=== PATIENT | female | born 2000 | race Caucasian/White ===

== ENCOUNTER 2023-11-25 03:31 | Emergency (ER) | payer SELFPAY ==
[2023-11-25 03:35] VITALS: BP 118/27; PULSE 108; RESP 16; TEMP 36.6; O2SAT 97; BMI 39.6
[2023-11-25 03:43] VITALS: BP 143/82
--- NOTE | 2023-11-25 03:52 | EX.ED.DYSGE1 ---
HPI History of Present Illness Chief Complaint: Abd Pain Informant: patient Narrative Narrative: 22-year-old female from the [facility] states she normally gets her care at [place] came to this emergency department for I do not know something like a second opinion for a esophagitis flare for the last 36 hours. She states that she had an EGD done several years ago that showed esophagitis. She only takes diflocenac now. She states she is not on a proton pump inhibitor. She states she feels very full in her upper abdomen and has gas. She states that 12 hours ago she went to [facility] where she had an EKG blood work and a CT of her abdomen pelvis which were negative. She states that she does not go anywhere for her care . She has a primary care doctor in [place] but states she does not go there because of the co-pay and she does not have health insurance because she makes too much money working to have it. She states that she is waiting on a GI referral to try to be able to pay for it [id number]. PFSH PFS Medical History Esophagitis H/O splenomegaly Allergy/AdvReac Type Severity Reaction Status Date / Time cephalexin Allergy unknown Verified 11/25/23 03:43 Sulfa (Sulfonamide Allergy Rash Verified 11/25/23 03:43 Antibiotics) sulfamethoxazole Allergy Vomiting Verified 11/25/23 03:43 [From Bactrim] tetracycline Allergy Rash Verified 11/25/23 03:43 trimethoprim [From Bactrim] Allergy Vomiting Verified 11/25/23 03:43 Social History Smoking Status: Unknown if ever smoked ROS [facility] ED Constitutional Constitutional ED: Denies chills or weight loss Eyes Eyes: Denies change in vision or diplopia ENT ENT ED: Denies ear pain, rhinorrhea or sore throat Cardiovascular Cardiovascular: Reports other Details: Syncope ; Denies chest pain, orthopnea, palpitations or racing heartbeat Respiratory/Chest Respiratory/Chest: Denies cough, dyspnea or orthopnea Gastrointestinal Gastrointestinal: Reports abdominal pain; Denies diarrhea, nausea or vomiting Genitourinary Genitourinary ED: Denies dysuria, hematuria or urinary frequency Musculoskeletal Musculoskeletal: Denies arthralgias or myalgias Integumentary Denies abscess or rash Neurologic Neurologic: Denies headache(s) or weakness Psychiatric Psychiatric: Denies anxiety, depression, suicidal ideation or suicidal thoughts Endocrine Endocrinology: Denies polydipsia, polyphagia or polyuria Allergic/Immunologic Allergic/Immunologic ED: Denies mouth swelling, tongue swelling or urticaria EXAM Physical Exam Const Vital Signs: 11/25/23 03:35 11/25/23 03:43 Temperature 97.8 F Temperature Source Oral Pulse Rate 108 H Respiratory Rate 16 Blood Pressure 118/27 L 143/82 H Blood Pressure Mean 57 102 Pulse Ox 97 Oxygen Delivery Method Room Air Positive well nourished and well developed General Appearance ED: well developed Eyes PERRL and EOMs intact bilaterally Neuro oriented x3 Sensorium / Orientation: alert MDM MDM MDM Narrative Medical decision making narrative: I asked the patient if she understands that I do not have access to her care that she has been receiving at outside hospitals. She understands this. I also asked her she understands that I do not feel that repeating a CT 12 hours after her last normal 1 unless absolutely indicated would be advised and she understands this. Anytime I go to ask a question the patient cuts me off and states that she knows. I asked her why she is taking an anti-inflammatory for this when it is known to aggravate esophagitis. She states that she is taking it for lower abdominal pain. She states her female organs are perfect . She states that she saw her elementary assistant teacher for this. She states that the medicine is for intestinal inflammation. No matter what I try to say I get cut off by the patient and eventually she tells me that if I am going to talk down to her that she is going to request a new doctor. Unfortunately it is 0345 in the morning And there are no other doctors in the emergency department. Therefore the patient got up and left the emergency department. Discharge Plan Triage Chief Complaint: Abd Pain ED Provider: Jaycob Coronado Dx/Rx/DC Orders Clinical Impression: Esophagitis, Abdominal pain Primary Care Provider: Ciera Hagan,Out of Referrals: [facility] Doctor,Out of [Primary Care Provider] - Disposition Disposition: Against Medical Advice Capacity Legal Physician Chief Of Pathology Reflex Medical hold order details:: IF a medical hold is selected below, a suggested order for a MEDICAL HOLD will reflex upon signing the document. Next of kin: [place] law dictates a PRIORITY LIST for identifying legal decision-maker/legal next of kin in the following order (LNOK): 1st: The patient?s legal guardian, if any 2nd: The patient's spouse (if status is questionable, consult Risk Management) 3rd: The patient?s adult child(ang[place]) (majority, if multiple children) 4th: The patient?s parents 5th: The patient?s adult siblings (majority, if multiple children siblings)
== END 2023-11-25 03:59 | disposition left against medical advice (07) ==
LOC: ED 03:56
PROVIDERS: Emergency Provider Emergency Medicine; Visit Provider Emergency Medicine
DX: R10.9 Unspecified abdominal pain (principal); K20.90 Esophagitis, unspecified without bleeding
CPT/HCPCS: 99282

== ENCOUNTER 2025-03-16 20:43 | Day surgery (SDC) | payer OTHER, SELFPAY ==
[2025-03-16 20:45] VITALS: BP 142/105; PULSE 102; RESP 18; TEMP 36.9; O2SAT 99; BMI 37.7
--- NOTE | 2025-03-16 21:13 | EDS_ITS ---
HPI History of Present Illness Chief Complaint: Foreign Body Detail of Chief Complaint: Unable to swallow own saliva x 3 hours Informant: patient Onset/Context/Timing Onset: Today (3 hours prior to presentation) Context: Sudden Onset Timing: Continuous Quality: Patient was eating chicken tenders. She feels like it stuck. Location: Initially mid chest now sensation near epigastrium Current Severity: Mild Maximum Severity: Mild Worsened by: Nothing Relieved by: Nothing Associated Symptoms Associated Symptoms: There is no past medical history of esophageal food bolus obstruction Narrative Narrative: Patient is a 24-year-old woman. She has history of gallstone pancreatitis status postcholecystectomy. She is followed by ruben METZ. 3 hours prior to presentation she was eating chicken tenders. She feels that classifier tender got stuck. She initially was pointing mid chest. She is now pointing near the xiphoid process. She is unable to swallow her own secretions. She denies any other complaints. She does not have history of esophageal stricture. Prior similar symptoms: No Recent Illness/Hospitalization: No PFSH PFS Medical History (Updated 03/16/25 @ 21:[address] Ivan Morelos MD) Acute cholecystitis Gallstone pancreatitis H/O splenomegaly Esophagitis Home Medications ?Medication ?Instructions ?Recorded ?Last Taken ?Type NK 03/16/25 Unknown History Allergy/AdvReac Type Severity Reaction Status Date / Time cephalexin Allergy unknown Verified 03/16/25 20:46 Sulfa (Sulfonamide Allergy Rash Verified 03/16/25 20:46 Antibiotics) sulfamethoxazole (From Allergy Vomiting Verified 03/16/25 20:46 Bactrim) tetracycline Allergy Rash Verified 03/16/25 20:46 trimethoprim (From Bactrim) Allergy Vomiting Verified 03/16/25 20:46 Social History Smoking Status: Unknown if ever smoked ROS ROS ED Constitutional Constitutional ED: Denies chills, fever(s), subjective or sweats ENT ENT ED: Denies sore throat Cardiovascular Cardiovascular: Reports chest pain; Denies palpitations or racing heartbeat Respiratory/Chest Respiratory/Chest: Denies cough, dyspnea or dyspnea on exertion Gastrointestinal Gastrointestinal: Denies abdominal pain, nausea or vomiting Hematologic/Lymphatic Hematologic/Lymphatic: Reports systems reviewed and no addt'l complaints, except as documented EXAM Physical Exam Const Vital Signs: 03/16/25 20:45 Temperature 98.4 F Temperature Source Oral Pulse Rate 102 H Respiratory Rate 18 Blood Pressure 142/105 H Blood Pressure Mean 117 Pulse Ox 99 Oxygen Delivery Method Room Air Positive well nourished and well developed Constitutional Narrative: BMI is 37.7. Patient has a emesis bag at bedside and it has significant amount of secretions. General Appearance ED: well developed; Negative for pallor HEENT Reports moist mucous membranes HEENT Narrative: Head is atraumatic normocephalic. Ears normal. Nares patent. Posterior pharynx is normal. Eyes PERRL and EOMs intact bilaterally General Eye ED: Negative for pale conjunctiva or scleral icterus Neck no lymphadenopathy, supple and no JVD Neck Narrative: Trachea is midline. There is no dysphonia. Resp normal respiratory effort and clear to auscultation bilaterally Cardio regular rate, S1 normal heart sound, S2 normal heart sound and no murmurs GI GI Narrative: Nontender. Palpation: soft Neuro oriented x3 and CN's II-XII intact bilaterally Sensorium / Orientation: alert Psych mental status grossly normal Skin no rashes or lesions noted, no wounds and skin turgor normal General Skin Exam: Negative for jaundice or pallor MDM MDM MDM Narrative Medical decision making narrative: Patient with obstructed esophagus due to food bolus, classifier tender. Will attempt glucagon. If this is unsuccessful we will contact [facility] transfer line for transfer for EGD to alleviate the obstruction since there is no GI available at [place]. Treatment and Re-Evaluation :: Patient did receive IV glucagon. She reported decrease in pain and believes that the obstruction has resolved. She was given water. She is able to drink the water without regurgitating it. In light of this the physician office secretary was asked to contact [facility] for transfer to for esophageal obstruction due to food bolus Suspect patient will be a ED to ED transport to facilitate appropriate care, EGD to alleviate food bolus obstruction. Spoke with the transfer line nurse. She will reach out to GI first. Will transfer care to Dr. Garcia. Discharge Plan Triage Chief Complaint: Foreign Body ED Provider: Ivan Morelos Dx/Rx/DC Orders Clinical Impression: Esophageal obstruction due to food impaction, Sinus tachycardia seen on environmental monitoring technician Prescriptions: No Action NK Primary Care Provider: Charo Bateman NP Referrals: Charo Bateman NP, [facility] [Primary Care Provider] - Print Language: Czech Disposition Disposition: Acute Care Hospital Discharge Location: [facility]
[2025-03-16] MEDS: Glucagon 1 MG/ML Syringe IV ×2 (21:24→23:09)
[2025-03-16 21:44] VITALS: BP 128/74; PULSE 89; RESP 16; O2SAT 99
[2025-03-16 22:44] VITALS: BP 133/86; PULSE 83; RESP 16; O2SAT 100
[2025-03-16 23:00] VITALS: BP 131/79; PULSE 87; RESP 16; O2SAT 99
[2025-03-16] MEDS: Ketorolac 15 MG/ML Vial IV (23:55)
[2025-03-16] MEDS: 0.9% Normal Saline (1000mL) 1,000 ML 150 ML IV (23:56)
[2025-03-17] VITALS (8 sets, daily range): BP systolic 108–144; BP diastolic 69–106; PULSE 60–93; RESP 16; TEMP 36.3–37.1; O2SAT 98–100; BMI 37.7
--- NOTE | 2025-03-17 00:46 | HP.PCM_ITS ---
[facility] - General General Date of Service: 03/17/25 Chief Complaint: Esophageal food impaction HPI Narrative CHANDU KILPATRICK, is a 24 F who presents to [facility] with complaints of inability to fully swallow a bite of covering machine tender but she first consumed approximately 1730 last evening. She states that she has a history of some swallowing impairment and occasionally things may take a few hours before in the past. However, when this did not occur after trying multiple different beverages she presented for evaluation. Patient states that beyond a history of swallowing impairment she has a diagnosis of eosinophilic esophagitis which was made at the age of 18. She reports being administered a single dose of budesonide but thereafter only being managed occasionally with omeprazole prescriptions. She underwent a follow-up EGD as part of a workup for gallstone pancreatitis approximately a year ago and was told at that time she had no evidence of esophageal narrowing. Patient was recently relocated to [place] after previously living in [facility] [place]. Patient's ER workup has consisted of 2 trials of glucagon. Patient has expressed some symptomatic relief but after the medication effect wears off she is still unable to tolerate her secretions. She also notes that the discomfort has changed positions from a midsternal position to a roughly xiphoid position as she gestures to those locations. Patient states that the food bolus in question is quite small in size as she tries to take care and not take large bites of food and makes an effort to chew her food thoroughly. [facility] Medical History (Updated 03/16/25 @ 21:[address] Ivan Morelos MD) Acute cholecystitis Gallstone pancreatitis H/O splenomegaly Esophagitis Home Medications ?Medication ?Instructions ?Recorded ?Last Taken ?Type NK 03/16/25 Unknown History Allergy/AdvReac Type Severity Reaction Status Date / Time cephalexin Allergy unknown Verified 03/16/25 20:46 Sulfa (Sulfonamide Allergy Rash Verified 03/16/25 20:46 Antibiotics) sulfamethoxazole (From Allergy Vomiting Verified 03/16/25 20:46 Bactrim) tetracycline Allergy Rash Verified 03/16/25 20:46 trimethoprim (From Bactrim) Allergy Vomiting Verified 03/16/25 20:46 Social History Smoking Status: Unknown if ever smoked Vital Signs Vital Signs Vital Signs: 03/16/25 20:45 03/16/25 21:44 03/16/25 22:44 Temperature 98.4 F Temperature Source Oral Pulse Rate 102 H 89 83 Respiratory Rate 18 16 16 Blood Pressure 142/105 H 128/74 H 133/86 H Blood Pressure Mean 117 92 101 Pulse Ox 99 99 100 Oxygen Delivery Method Room Air 03/16/25 23:00 03/17/25 00:00 Temperature Temperature Source Pulse Rate 87 78 Respiratory Rate 16 16 Blood Pressure 131/79 H 144/90 H Blood Pressure Mean 96 108 Pulse Ox 99 98 Oxygen Delivery Method Room Air Weight Weight: 213 lb Body Mass Index (BMI) 37.7 Physical Exam Const alert, oriented x3 and no apparent distress General Appearance: cooperative Resp normal respiratory effort GI GI Narrative: Nondistended, soft, nontender palpation x 4 quadrants in the epigastrium specifically Assessment & Plan Assessment/Plan (1) Esophageal obstruction due to food impaction: PLAN: Patient is a 24-year-old female who has a known history of eosinophilic esophagitis that apparently has never been definitively treated who presents for esophageal food impaction. Clinically she is stable but remains unable to swallow her secretions. Optimistically, she reports some migration of her discomfort inferiorly. I shared with her that we will plan for EGD with either foreign body extraction or simply try to maneuver the bolus beyond her gastroesophageal junction into the stomach proper. I further discussed that I do not use these procedures to perform any esophageal biopsies out of concern for local tissue necrosis/pressure injury and would recommend a dedicated exam for this purpose so that she can be definitively treated for this condition. She acknowledges understanding. Have discussed case with anesthesia and house sitter. Will plan to proceed to endoscopy for esophageal foreign body disimpaction. Ezequiel Lanier MD General Surgery Endocrine Surgery Pager: [facility] [address] [place] [address], [address] [place] [address] Office: [phone] Charges/Coding Visit Charges Office Visits / Consults: 15291 ED Visit; High/Urgent Severity
--- NOTE | 2025-03-17 01:36 | ED.RN ---
REPORT CALLED TO SURGERY. NURSE REQUESTED TEST TO BE COMPLETED PRIOR TO TAKING TO SURGERY. DOCTOR NOAH NOTIFIED
--- NOTE | 2025-03-17 01:38 | PRE.ANES_ITS ---
ASA Classification* ASA Classification ASA Classification: 2 and E Assessment & Plan Anesthesia* Anesthesia Assessment Anesthesia Assessment: Discussed sedation and/or anesthesia options, risks, benefits, and alternatives with patient/parents/legal guardian/POA. Questions invited. The patient/parents/legal guardian/POA seems to understand and agrees to proceed with anesthesia plan. Reviewed the physical assessment, medical history, allergy history and patient home medications list prior to surgery/procedure/anesthetic and documented any changes. Performed airway and anesthesia risk assessments. Anesthesia Type Anesthesia Type: MAC History Source History Obtained from:: Patient and Chart Anesthesia Focused Assessment* Temperature: 98.7 F Pulse Rate: 79 Blood Pressure: 133/70 Respiratory Rate: 16 Pulse Ox: 100 Oxygen Delivery Method: Room Air Airway Assessment Mouth opens: >3 cm Mallampati Score: II Teeth Condition: Intact Neck Range of motion (ROM): Full ROM Focused Labs Anesthesia Preop lab: CBC CHEMISTRY COAG Urine Test Negative Negative 03/17/25 01:40 03/17/25 Pre-Assessment Diagnosis/Proposed Procedure Planned Operative Procedure(s): EGD Anesthesia History Anesthesia History - ear machine operator: Anesthesia History - ear machine operator Hx Hospitalization Any Problems With Anesthesia No 03/17/25 00:50 Cholinesterase deficiency No 03/17/25 00:50 You/Your Family Experience No 03/17/25 00:50 fever (hyperthermia) with Relationship Recent Exposure to Contagious No 03/17/25 00:50 Disease Does patient have nerve No 03/17/25 00:50 stimulator Patient instructed to have No 03/17/25 00:50 device shut off --Does patient have Pacemaker No 03/17/25 00:50 or ICD? When Was Last Pacemaker Check QUESTION #4 FULL TEXT: You/Your Family Experience fever (hyperthermia) with Anesthesia Last Oral Intake Last Oral intake: Last Oral Intake NPO since 17:30 03/17/25 00:50 Meds taken in AM with sips of water? Meds patient instructed to take am of surgery PONV PONV - ear machine operator: PONV - ear machine operator Female HX of Motion Sickness HX of N/V After Surgery Non-Smoker Duration of Surgery greater than 60 minutes Number of Risk Factors PONV Score Height & Weight Height & Weight: Anesthesia: Height & Weight Height 5 ft 3 in 03/17/25 00:50 Weight: 96.615 kg 03/17/25 00:50 Body Mass Index (BMI) 37.7 03/17/25 00:50 Respiratory Assessment Respiratory Assessment - ear machine operator: Respiratory Tract Infection Hx - ear machine operator Hx Respiratory Tract Infection No 03/17/25 00:50 STOP Sleep Apnea STOP Sleep Apnea - ear machine operator: STOP Sleep Apnea - ear machine operator Hx Hypertension No 03/17/25 00:50 Hx Sleep Apnea No 03/17/25 00:50 CPAP BIPAP Do you snore loudly (louder Yes 03/17/25 00:50 than talking or can be heard Do you often feel tired/ No 03/17/25 00:50 fatigued/ sleepy during daytime? Has anyone observed you stop No 03/17/25 00:50 breathing during sleep? STOP Results Negative 03/17/25 00:50 QUESTION #5 FULL TEXT : Do you snore loudly (louder than talking or can be heard through closed doors)? Tobacco Use History Tobacco Use History - ear machine operator: Tobacco Use History - ear machine operator Tobacco Use Smoking Status Unknown if ever smoked 03/16/25 21:13 Hx Tobacco Use Years Smoking Packs Smoked per Day Smoking Cessation Date was within the last 15 years Hx Smoking Cessation Date Hx Smoking Cessation Counseling Hematologic Medial History Hematologic Hx - ear machine operator: Hematologic Medical Hx - lead mason tender Hx of Blood Transfusion Hx of Transfusion in last 3 Months Date of Last Transfusion (if within last 3 months) Ever experience any problems with transfusion(s)? Specify any problems Hx of Preganancy in last 3 Months Nurse Filling Out Transfusion & Questions: Date: Time: Patient unable to answer at this time (ie. confused, unrespo /Reproduction History /Reproductive History - ear machine operator: /Reproductive Hx- ear machine operator Hx Now No 03/17/25 00:50 Gestational Age (in weeks): EDC: Hx Hx Para Hx Section SAB No 03/17/25 00:50 Active Medications Active Medications: Current Medications Generic Name Dose Route Start Last Admin Trade Name Freq PRN Reason Stop Dose Admin Sodium Chloride 1,000 mls @ 150 mls/hr 03/16/25 23:50 03/16/25 23:56 IV 150 mls/hr .[id number] CHAVA Administration PFSH Medical History (Updated 03/17/25 @ 03:[address] Ezequiel Lanier MD) Acute cholecystitis Gallstone pancreatitis H/O splenomegaly Esophagitis Home Medications ?Medication ?Instructions ?Recorded ?Last Taken ?Type pantoprazole 40 mg tablet,delayed 40 mg PO DAILY #30 t abs 03/17/25 Unknown Rx release Allergy/AdvReac Type Severity Reaction Status Date / Time cephalexin Allergy unknown Verified 03/16/25 20:46 Sulfa (Sulfonamide Allergy Rash Verified 03/16/25 20:46 Antibiotics) sulfamethoxazole (From Allergy Vomiting Verified 03/16/25 20:46 Bactrim) tetracycline Allergy Rash Verified 03/16/25 20:46 trimethoprim (From Bactrim) Allergy Vomiting Verified 03/16/25 20:46 Social History Smoking Status: Unknown if ever smoked Review of Systems (Anesthesia) ROS Narrative System reviewed and no additional complaints, except as documented. Physical Exam Const alert and oriented x3 Neck full ROM Resp normal respiratory effort Cardio regular rate Neuro oriented x3
[2025-03-17 01:46] LABS: Red Blood Cells-Urine 0 SEEN /hpf (0-5); White Blood Cells 0 SEEN /hpf (0-5)
[2025-03-17 01:49] LABS: Color, Urine Yellow (Yellow); Glucose, Dipstick Normal (Normal); Ketone-Dipstick 5 mg/dl (Negative); Leukocyte Esterase-Dipstick Negative /ul (Negative); Nitrite-Dipstick Negative (Negative); Occult Blood-Urine Negative /ul (Negative); Protein-Dipstick 30 mg/dl (Negative); Specific Gravity, Urine 1.025 (1.002-1.030); Urine Bilirubin Dipstick Negative (Negative); Urine Clarity Clear (Clear); Urine Urobilinogen Normal (Normal)
[2025-03-17 02:00] LABS: Bacteria 2+ /hpf (None Seen); Internal QC Validated? YES +Cl - CLEAR BKGD; Mucous, Urine 2+ /hpf (<or=2+); Pregnancy, Urine Negative Negative; Squamous Epithelial Cells - UA 0-5 SEEN /hpf (5-10)
--- NOTE | 2025-03-17 03:25 | OP.EGD_ITS ---
Patient Name: Angela Palma Procedure Date: 03/17/2025 1:38 AM Date of : 2000 Age: 24 Procedure: Upper GI endoscopy Indications: Foreign body in the esophagus Providers: Ezequiel Lanier MD Medicines: See the Anesthesia note for documentation of the administered medications Patient Profile: Refer to note in patient chart for documentation of history and physical. Complications: No immediate complications. Estimated blood loss: Minimal. Procedure: Pre-Anesthesia Assessment: - The heart rate, respiratory rate, oxygen saturations, blood pressure, adequacy of pulmonary ventilation, and response to care were monitored throughout the procedure. After obtaining informed consent, the endoscope was passed under direct vision. Throughout the procedure, the patient's blood pressure, pulse, and oxygen saturations were monitored continuously. The gastroscope was introduced through the mouth, and advanced to the second part of duodenum. The upper GI endoscopy was technically difficult and complex due to presence of food and the patient's respiratory instability (hypoxia). Successful completion of the procedure was aided by increasing the dose of sedation medication, performing chin lift and administering oxygen. The patient tolerated the procedure fairly well. Scope In: 2:12:46 AM Scope Out: 3:09:52 AM Total Procedure Duration Time 0 hours 57 minutes 6 seconds Findings: Food was found at the gastroesophageal junction. Removal was accomplished with a Raptor grasping device and Hairston net. Estimated blood loss: 5 mL requiring treatment with coagulation. No gross lesions were noted in the duodenal bulb, in the first portion of the duodenum and in the second portion of the duodenum. No gross lesions were noted [Site]. The Z-line was regular and was found 35 cm from the incisors. A small hiatal hernia was present. No biopsies or other specimens were collected for this exam. Mucosal changes including longitudinal furrows, white plaques and mucosal friability were found in the mid esophagus and in the distal esophagus. Esophageal findings were graded using the Eosinophilic Esophagitis Endoscopic Reference Score (EoE-EREFS) as: Edema Grade 1 Present (decreased clarity or absence of vascular markings), Rings Grade 1 Mild (subtle circumferential ridges seen on esophageal distension), Exudates Grade 1 Mild (scattered white lesions involving less than 10 percent of the esophageal surface area), Furrows Grade 1 Mild (vertical lines without visible depth) and Stricture present. No biopsies or other specimens were collected for this exam. Impression: - Food at the gastroesophageal junction. Removal was successful. - No gross lesions in the duodenal bulb, in the first portion of the duodenum and in the second portion of the duodenum. - No gross lesions [Site]. - Z-line regular, 35 cm from the incisors. - Small hiatal hernia. No specimens collected. - Esophageal mucosal changes consistent with eosinophilic esophagitis. No specimens collected. Recommendation: - Discharge patient to home (via wheelchair). - Soft diet for 2 days. - No aspirin, ibuprofen, naproxen, or other non-steroidal anti-inflammatory drugs for 2 days. - Use Protonix (pantoprazole) 40 mg PO daily today. - Repeat upper endoscopy in 1 month to assess disease activity. Procedure Code(s): --- Professional --- 46885, Esophagogastroduodenoscopy, flexible, transoral; with removal of foreign body(s) Diagnosis Code(s): --- Professional --- T18.128A, Food in esophagus causing other injury, initial encounter K44.9, Diaphragmatic hernia without obstruction or gangrene K22.89, Other specified disease of esophagus T18.108A, Unspecified foreign body in esophagus causing other injury, initial encounter CPT copyright 2021 [employer]. All rights reserved. The codes documented in this report are preliminary and upon sales activity manager review may be revised to meet current compliance requirements. Ezequiel Lanier MD 03/17/2025 3:24:25 AM This report has been signed electronically. Number of Addenda: 0 Note Initiated On: 03/17/2025 1:38 AM
--- NOTE | 2025-03-17 03:38 | PCM.POST.ANE ---
Anesthesia: Postop Eval I Current Vital Signs Temperature: 97.8 F Pulse Rate: 79 Blood Pressure: 133/70 Respiratory Rate: 16 Pulse Ox: 100 Oxygen Delivery Method: Room Air Assessment Airway patent: Yes Spontaneous unlabored respirations: Yes Mental status: Awake and Calm nausea: No Vomiting: No Anesthesia Complication: No Fluid Hydration Crystalloid volume administer (ml): 1,000 Total IV fluid infused: 1,000 Progress Note Anesthesia document: Postop Eval 1 completed: Yes
--- NOTE | 2025-03-17 03:41 | PCM.POSTANE2 ---
Anesthesia Postop Eval I Sum Postop Eval Completion status Anesthesia document: Postop Eval 1 completed: Yes Anesthesia Postop Eval I Summary Anesthesia Postop Eval I Summary: Anesthesia Postop Eval I: Assessment Summary Airway patent Yes 03/17/25 03:38 Spontaneous unlabored Yes 03/17/25 03:38 respirations Mental status Awake,Calm 03/17/25 03:38 nausea No 03/17/25 03:38 Vomiting No 03/17/25 03:38 Anesthesia Postop Eval I: Fluid Summary Crystalloid volume administer 1,000 03/17/25 03:38 (ml) Colloids volume administered ( ml) Blood Product volume administered (ml) Total IV fluid infused 1,000 03/17/25 03:38 Anesthesia Postop Eval I: Summary Notes Anesthesia Complication No 03/17/25 03:38 Anesthesia Complication Comment: Post-operative progress note Anesthesia: Postop Eval II Evaluation Mental status: Awake and Calm Pain Level: 0 nausea: No Vomiting: No Complications Anesthesia Complication: No
== END 2025-03-17 03:49 | disposition home or self-care (01) ==
LOC: ED 21:43 → SDC 03-17 00:41 → AC 03-17 00:43
PROVIDERS: Emergency Medicine; Emergency Provider Emergency Medicine; PCP Registered Nurse; Visit Provider Surgery
PROC: 0DJ08ZZ Inspection of Upper Intestinal Tract, Via Natural or Artificial Opening Endoscopic (ICD-10-PCS; CPT 43235; principal; 2025-03-17 01:45)
DX: T18.128A Food in esophagus causing other injury, initial encounter (principal); K44.9 Diaphragmatic hernia without obstruction or gangrene; K20.0 Eosinophilic esophagitis; Z87.19 Personal history of other diseases of the digestive system
CPT/HCPCS: 43247; 81001; 81025; 99284; C1889; A4216; J1610; J2405

== ENCOUNTER 2025-03-25 20:39 | Emergency (ER) | payer OTHER, SELFPAY ==
[2025-03-25 20:40] VITALS: BP 133/77; PULSE 103; RESP 16; TEMP 37.1; O2SAT 99; BMI 36.8
--- NOTE | 2025-03-25 21:36 | EX.ED.VIS.EY ---
HPI History of Present Illness Chief Complaint: Eye Problem Informant: patient Onset/Context/Timing Location: Left Eye Onset: Today Context: Gradual Onset Timing: Continuous Current Severity: Moderate Maximum Severity: Moderate Associated Symptoms Associated Symptoms - Eyes: Drainage, Eyelid swelling, Foreign body sensation, Itching and Redness; Negative for Pain History of injury: No Visual correction: Glasses Narrative Narrative: 21-year-old female past medical history of eosinophilic esophagitis. 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 Said this morning she thought she was something in her eye. Feels irritated. She started having greenish discharge. Was seen at the [facility] urgent care here in [facility]. They put her on erythromycin ointment. Several hours later she is now having swelling to the upper and lower lids. Denies any significant pain. She did she does currently have a URI. Prior similar symptoms: No Recent Illness/Hospitalization: No [facility] Medical History Acute cholecystitis Gallstone pancreatitis H/O splenomegaly Esophagitis Home Medications ?Medication ?Instructions ?Recorded ?Last Taken ?Type pantoprazole 40 mg tablet,delayed 40 mg PO DAILY #30 tabs 03/17/25 Unknown Rx release Allergy/AdvReac Type Severity Reaction Status Date / Time cephalexin Allergy unknown Verified 03/25/25 20:44 Sulfa (Sulfonamide Allergy Rash Verified 03/25/25 20:44 Antibiotics) sulfamethoxazole (From Allergy Vomiting Verified 03/25/25 20:44 Bactrim) tetracycline Allergy Rash Verified 03/25/25 20:44 trimethoprim (From Bactrim) Allergy Vomiting Verified 03/25/25 20:44 Social History Smoking Status: Never smoker ROS ROS ED ROS Narrative URI symptoms. Left eye swollen. Discharge. Constitutional Constitutional ED: Denies fever(s) Eyes Eyes: Denies blurry vision ENT ENT ED: Denies ear pain Cardiovascular Cardiovascular: Denies chest pain Respiratory/Chest Respiratory/Chest: Denies cough or dyspnea Gastrointestinal Gastrointestinal: Denies abdominal pain Genitourinary Genitourinary ED: Denies dysuria Musculoskeletal Musculoskeletal: Denies arthralgias Integumentary Denies abscess Neurologic Neurologic: Denies headache(s) Psychiatric Psychiatric: Denies anxiety Endocrine Endocrinology: Denies polydipsia Hematologic/Lymphatic Hematologic/Lymphatic: Denies easy bleeding Allergic/Immunologic Allergic/Immunologic ED: Denies mouth swelling, tongue swelling or urticaria EXAM Physical Exam Narrative Exam Narrative: 21-year-old female sitting upright in bed. Vital signs are stable afebrile. Left upper and lower lids are mildly swollen. She can open her eye. There is greenish discharge. Eyes injected. Watering. No jazmine pus. Pupils round reactive light. Extra motions are intact bilaterally. Right eyes minimally swollen. But no discharge. There is no orbital or periorbital cellulitis. There is no proptosis. She has no pain with extraocular motion. Her visual acuity is 20/20 on the right. 2049 on the left and affected eye. And 20/25 bilaterally. No facial lymphadenopathy. Neck nontender. No lymphadenopathy. Lungs clear. Heart regular rhythm rate about 100 no murmur. Chest wall nontender. Abdomen soft nontender. Moving all 4 extremities. Const Vital Signs: 03/25/25 20:40 Temperature 98.7 F Temperature Source Oral Pulse Rate 103 H Respiratory Rate 16 Blood Pressure 133/77 H Blood Pressure Mean 95 Pulse Ox 99 Oxygen Delivery Method Room Air Positive well nourished and well developed; Negative for cachectic, contractures or unkempt General Appearance ED: well developed and NAD; Negative for unkempt, cachectic or contractures Nutritional Appearance: Negative for cachectic HEENT atraumatic Eyes Eyes Narrative: Left eye watering. Mildly swollen. Greenish discharge. No pus. No orbital or periorbital cellulitis. No proptosis. No preauricular lymphadenopathy. Normal range of motion. Pupils round reactive light. No pain with range of motion. Neck no lymphadenopathy, supple and no JVD General: Negative for tenderness Resp normal respiratory effort, no retractions, no use of accessory muscles and clear to auscultation bilaterally Cardio regular rate, regular rhythm, S1 normal heart sound, S2 normal heart sound and no murmurs GI non-tender, non-distended and no masses Auscultation: normoactive bowel sounds Palpation: soft Back/Spine Negative for no CVA tenderness General Back: Negative for CVA tenderness Extremity normal to inspection General Extremety ED: Negative for edema or other findings General Extremity: Negative for edema or other findings Neuro oriented x3 and CN's II-XII intact bilaterally Sensorium / Orientation: alert, oriented to person, oriented to place and oriented to time; Negative for orientation impaired Motor Exam: strength 5/5 throughout Psych Appearance: Negative for unkempt Attitude: No agitated Mood & Affect: Negative for depressed, anxious or tearful Skin no wounds Lesions: no lesions Rashes: no rashes Trauma: Negative for abrasion or laceration MDM MDM MDM Narrative Medical decision making narrative: 23-year-old female with an injected, watering left eye with discharge with swelling the upper lower lid. Clinically looks like conjunctivitis. I will slit-lamp exam in the left eye with fluorescein stain. Visual acuities already been obtained. History & Record Review Discussion w/independent historian: Patient Discharge Plan Triage Chief Complaint: Eye Problem ED Provider: Yazan Hunter Dx/Rx/DC Orders Prescriptions: No Action pantoprazole 40 mg tablet,delayed release (DR/EC) 40 mg PO DAILY Qty: 30 0RF Primary Care Provider: Charo Bateman NP Referrals: Charo Bateman NP, [facility] [Primary Care Provider] - Print Language: Ethiopian
[2025-03-25] MEDS: Fluorescein 1 MG STRIP 1 STRIP LEFT EYE (21:40)
[2025-03-25 22:49] VITALS: BP 114/77; PULSE 78; RESP 14; TEMP 36.6; O2SAT 96
== END 2025-03-25 22:50 | disposition home or self-care (01) ==
PROVIDERS: Emergency Provider Emergency Medicine; PCP Registered Nurse; Visit Provider Emergency Medicine
DX: H57.89 Other specified disorders of eye and adnexa (principal); R22.0 Localized swelling, mass and lump, head; J06.9 Acute upper respiratory infection, unspecified
CPT/HCPCS: 99283